=== PATIENT | male | born 1935 | race Caucasian/White ===

== ENCOUNTER 2019-02-05 10:40 | Emergency (ER) | payer MEDICARE, BC ==
[2019-02-05 11:00] VITALS: BP 115/54
--- NOTE | 2019-02-05 11:04 | UC ---
General HPI - HPI Summary HPI Summary: Pleasant 83 yo gentleman presents accompanied by his here for "recheck." Seen 02/03/19 in [place] ED after a syncopal episode [place]. Recalls feeling weak and wanting to lean back while sitting in a chair, and his noted him to be "slumped over". Spent 5-6 hours per pt in the ED, ED w/u they reported was unremarkable. He does not have reports / notes, but did bring d/c instructions, regarding nausea. Rx zofran from the ED. Upon driving to [place] (they are dropping their grandchild off at [place]), he continued to feel weak, fatigued. Appetite decreased, funny feeling in stomach. No melena no brbpr. Denies urinary sx. No recent fever / chills. He notes that he has been more fatigued, short-winded than usual especially notes while walking around [place]. Has not passed out. Glucose monitored closely, no new issues. No rash. No vis / aud changes. No h /a. Denies recent new or unusual focal weakness. - History of Current Complaint Chief Complaint: UCGeneralIllness Stated Complaint: RECHECK AFTERFAINTING SPELL Time Seen by Provider: 02/05/19 11:00 Hx Obtained From: Patient, Family/Director Product Safety Pain Intensity: 0 - Allergy/Home Medications Allergies/Adverse Reactions: Allergies Allergy/AdvReac Type Severity Reaction Status Date / Time No Known Allergies Allergy Verified 02/05/19 11:01 Home Medications: Home Medications Amlodipine Besylate [Norvasc] 10 mg PO DAILY 02/05/19 [History Confirmed ] Aspirin EC TAB* [Ecotrin EC Low Dose 81 MG*] 81 mg PO DAILY 02/05/19 [History Confirmed 02/05/19] Carvedilol [Coreg] 12.5 mg PO BID 02/05/19 [History Confirmed 02/05/19] Cholecalciferol TAB* [Vitamin D TAB*] 1,000 unit PO DAILY 02/05/19 [History Confirmed 02/05/19] Cyanocobalamin TAB* [Vitamin B12 TAB*] 1,000 mcg PO DAILY 02/05/19 [History Confirmed 02/05/19] Dulaglutide [Trulicity] 0.75 mg SQ WEEKLY 02/05/19 [History Confirmed 02/05/19] Furosemide TAB* [Lasix TAB*] 20 mg PO .EVERYOTHERDAY 02/05/19 [History Confirmed 02/05/19] Glucosamine HCl [Glucosamine] 2 tab PO DAILY 02/05/19 [History Confirmed ] Insulin Aspart Prot/Insuln Asp [Novolog Mix 70/30 Prefill] SC . NEEDED PRN [History] Insulin GLARGINE(*) [Lantus(*)] 10 - 18 units SUBCUT BEDTIME 02/05/19 [History Confirmed 02/05/19] Iron 2 tab PO DAILY 02/05/19 [History Confirmed 02/05/19] Lisinopril TAB* [Prinivil TAB*] 20 mg PO BID 02/05/19 [History Confirmed ] Magnesium 1 dose PO DAILY 02/05/19 [History Confirmed 02/05/19] Metformin HCl 500 mg PO BID 02/05/19 [History Confirmed 02/05/19] Multivitamin [Multivitamins] 1 cap PO DAILY 02/05/19 [History Confirmed 02/05/19 ] Omeprazole 20 mg PO DAILY 02/05/19 [History Confirmed 02/05/19] Rosuvastatin Calcium [Crestor] 10 mg PO DAILY 02/05/19 [History Confirmed ] Sodium Bicarbonate (ANTACID)* 1 g PO BID 02/05/19 [History Confirmed 02/05/19] Vitamin E Acetate [Vitamin E] 1,000 unit PO DAILY 02/05/19 [History Confirmed ] PMH/Surg Hx/FS Hx/Imm Hx Previously Healthy: No - see hpi and Rn notes Cardiovascular History: Cardiac Disease, Hypertension - Surgical History Surgical History: Yes Surgery Procedure, Year, and Place: hernia,[place] - Family History Known Family History: Positive: Non-Contributory - Social History Alcohol Use: None Substance Use Type: None Smoking Status (MU): Never Smoked Tobacco Review of Systems All Other Systems Reviewed And Are Negative: Yes Constitutional: Positive: Fatigue Skin: Positive: Other - see hpi Eyes: Positive: Other ENT: Positive: Other - see hpi Respiratory: Positive: Other - see hpi Cardiovascular: Positive: Other - see hpi Gastrointestinal: Positive: Other - see hpi Genitourinary: Positive: Other - see hpi Motor: Positive: Other - see hpi Neurovascular: Positive: Other - see hpi Musculoskeletal: Positive: Other: - see hpi Neurological: Positive: Other - see hpisee hpi Psychological: Positive: Negative Is Patient Immunocompromised?: No Physical Exam Triage Information Reviewed: Yes Appearance: Well-Appearing - sitting up for examination. Conversing in full sentances. Looks a little tired, but NAD. Nontoxic general appearance, Well- Nourished Vital Signs: Initial Vital Signs Temp 98 F 02/05/19 10:55 Pulse 50 02/05/19 10:55 Resp 18 02/05/19 10:55 BP 115/54 02/05/19 10:55 Pulse Ox 99 02/05/19 10:55 Vital Signs Reviewed: Yes Eye Exam: Normal ENT Exam: Other - mm moist ENT: Positive: Other - ? facial droop L lip, but able to move with conversation Neck exam: Other - + arthritic changes trachea midline. bruit equivacle Respiratory Exam: Other - BS present bilat. fine crackles at base L>R, does not clear with cough. RR normal, no dyspnea, no tachypnea. Respiratory: Positive: No respiratory distress, No accessory muscle use Cardiovascular Exam: Other - HR low 50's + large syst murmur regular rhythm with occas extra beat Abdominal Exam: Other - + implant R abd in place, does not appear infected Several ecchymoses of various age scattered across abd Abd soft + bs With point tenderness, but does c/o unwell feeling in abd. No cvat noted. Musculoskeletal Exam: Other - Moves all 4 ext's well. + several areas of hemosiderosis, flaky skin BUE BLE. There is mild edema BLE (reports that he did wear compression sock for driving, but not today). Paucity of hair growth. Neurological Exam: Other - without acute hx or findings other than noted Psychological Exam: Normal - conversing easily and appropriately nad Skin Exam: Other - multiple eccymosis and scattered hemosiderosis nondiaphoretic. Turgor ok. Course/Dx - Course Course Of Treatment: ekg - sinus bradycardia at 52 bpm, pr 279, qtc 390 BL lad. No old for comp I reviewed with patient avs instructions from [place]. No reports attached. Had CT brand nad CXR nad labs incl trop rx zofran from [place]. 83 yo gentleman s/p recent syncope episode, and ongoing fatigue and sob. Significant medical hx. He and were planning to travel from [place] to [facility] but they will cancel that part of the trip. I implored him to go to the ED. and Ms. Luciano carefully considered this, but politely but firmly decline. He also declines a cxr here. They asked about flying back to [place], but I recommend against this, several reasons d/w and Ms Luciano. Upon consideration, Mr Luciano reports that he will go to the ED tomorrow after getting their grandson settled in. But will call 911 to go to the ED sooner if worse / new issues. and Ms. Luciano were given the opportunity to ask several insightful questions, to which I answered to the best of my ability. - Diagnoses Provider Diagnosis: Near syncope, Weakness Discharge - Sign-Out/Discharge Documenting (check all that apply): Patient Departure All imaging exams completed and their final reports reviewed: No Studies - Discharge Plan Condition: Guarded Disposition: HOME Patient Education Materials: Weakness (ED), Near Syncope (ED) Referrals: No Primary Care Phys,NOPCP [Primary Care Provider] - Additional Instructions: I recommend that you go to the Emergency Department for further evaluation and treatment. Call 911 and go to the Emerg Department if any worse or new problems. Avoid flying if possible. Call your doctor to arrange follow up for when you return home. - Billing Disposition and Condition Condition: GUARDED Disposition: Home
--- NOTE | 2019-02-05 14:50 | UC ---
- Progress Note Progress Note: addendum - Mr. Luciano declined cxr Course/Dx - Diagnoses Provider Diagnoses: Near syncope, Weakness Discharge - Sign-Out/Discharge Documenting (check all that apply): Patient Departure All imaging exams completed and their final reports reviewed: No Studies - Discharge Plan Condition: Guarded Disposition: HOME Patient Education Materials: Weakness (ED), Near Syncope (ED) Referrals: No Primary Care Phys,NOPCP [Primary Care Provider] - Additional Instructions: I recommend that you go to the Emergency Department for further evaluation and treatment. Call 911 and go to the Emerg Department if any worse or new problems. Avoid flying if possible. Call your doctor to arrange follow up for when you return home. - Billing Disposition and Condition Condition: GUARDED Disposition: Home
== END 2019-02-05 12:03 | disposition home or self-care (01) ==
LOC: UCEAST 10:40
DX: R55 Syncope and collapse (principal); R53.83 Other fatigue; I10 Essential (primary) hypertension; E11.9 Type 2 diabetes mellitus without complications; Z79.4 Long term (current) use of insulin; Z79.82 Long term (current) use of aspirin
CPT/HCPCS: 93005; 99202; G0463

== ENCOUNTER 2019-02-06 11:49 | Emergency (ER) | payer MEDICARE, BC ==
[2019-02-06] MEDS ORDERED: NS 0.9% 1000 ML** 1,000 ML IV ONE (12:07)
--- NOTE | 2019-02-06 12:28 | ED ---
Syncope/Near Syncope - HPI Summary HPI Summary: This pt is an 83 Y/O M presenting to [facility] accompanied by his and a CC of syncope that occurred on 02/03/19. He stated that he was driving across the [place] and was crossing into [place] from [place] when the episode occurred. He stated feeling nauseas prior to the episode occurring. He stated that he became unconscious in the car and was unable to be aroused during the episode. He stated that he was at a convenient care prior to arrival to this hospital today for a check-up when he was recommended by the physician working to come to the hospital for further investigation. He states that he has no CP, SOB, headache, vomiting, fevers, chills, and weakness. He stated no aggravating or alleviating symptoms. - History Of Current Complaint Chief Complaint: EDSyncope Time Seen by Provider: 02/06/19 12:07 Hx Obtained From: Patient Onset/Duration: Sudden Onset, Resolved Timing: Intermittent Episode Lasting Context: Witnessed, Loss Of Consciousness Activity At Onset: At Rest Associated Head Trauma: No Aggravating Factor(s): Nothing Alleviating Factor(s): Nothing Associated Signs And Symptoms: Negative - CP, SOB, headache, Vomiting, fevers, chills, and weakness., Other - nausea at the time of the episode - Allergies/Home Medications Allergies/Adverse Reactions: Allergies Allergy/AdvReac Type Severity Reaction Status Date / Time No Known Allergies Allergy Verified 02/06/19 11:56 PMH/Surg Hx/FS Hx/Imm Hx Previously Healthy: Yes Endocrine/Hematology History: Reports: Hx Diabetes - iddm Denies: Hx Thyroid Disease Cardiovascular History: Reports: Hx Hypertension Respiratory History: Denies: Hx Asthma GI History: Denies: Hx Ulcer Sensory History: Reports: Hx Contacts or Glasses Opthamlomology History: Reports: Hx Contacts or Glasses - Surgical History Surgery Procedure, Year, and Place: hernia x2 years ago. cholecystectomy x2 years ago. [address] in the . Infectious Disease History: No Infectious Disease History: Reports: Travel[place] Outside the [place] in Last 30 [place], returned last week Denies: Hx Hepatitis - Family History Known Family History: Positive: Hypertension - Social History Occupation: Retired Lives: With Family Alcohol Use: None Hx Substance Use: No Substance Use Type: Reports: None Hx Tobacco Use: No Smoking Status (MU): Never Smoked Tobacco Review of Systems Negative: Fever, Chills Negative: Chest Pain Negative: Shortness Of Breath Positive: Nausea - prior to the episode . Negative: Vomiting Positive: Syncope - occurred 3 days ago . Negative: Headache All Other Systems Reviewed And Are Negative: Yes Physical Exam - Summary Physical Exam Summary: VITAL SIGNS: Reviewed. GENERAL: Patient is a well-developed and nourished male who is lying comfortable in the stretcher. Patient is not in any acute respiratory distress. HEAD AND FACE: No signs of trauma. No ecchymosis, hematomas or skull depressions. No sinus tenderness. EYES: PERRLA, EOMI x 2, No injected conjunctiva, no nystagmus. EARS: Hearing grossly intact. Ear canals and tympanic membranes are within normal limits. MOUTH: Oropharynx within normal limits. NECK: Supple, trachea is midline, no adenopathy, no JVD, no carotid bruit, no c- spine tenderness, neck with full ROM. CHEST: Symmetric, no tenderness at palpation LUNGS: Clear to auscultation bilaterally. No wheezing or crackles. CVS: Regular rate and rhythm, S1 and S2 present, lower systolic injection murmur 2/6 ABDOMEN: Soft, non-tender. No signs of distention. No rebound no guarding, and no masses palpated. Bowel sounds are normal. EXTREMITIES: FROM in all major joints, lower extremity edema 1+, no cyanosis or clubbing. NEURO: Alert and oriented x 3. No acute neurological deficits. Speech is normal and follows commands. SKIN: Dry and warm Triage Information Reviewed: Yes Vital Signs On Initial Exam: Initial Vitals Temp Pulse Resp BP Pulse Ox 98.9 F 59 16 180/67 96 02/06/19 11:50 02/06/19 11:50 02/06/19 11:50 02/06/19 11:50 02/06/19 11:50 Vital Signs Reviewed: Yes Diagnostics - Vital Signs Vital Signs Temp Pulse Resp BP Pulse Ox 02/06/19 11:50 98.9 F 59 16 180/67 96 - Laboratory Result Diagrams: 02/06/19 12:34 02/06/19 12:34 Lab Statement: Any lab studies that have been ordered have been reviewed, and results considered in the medical decision making process. - EKG 1251 Cardiac Rate: Bradycardia - 58 BPM EKG Rhythm: Sinus Bradycardia ST Segment: Normal Ectopy: None Summary of EKG Findings: Sinus Bradycardia at [address] elevations and Normal axis. Normal interval. No ischemic changes. Interpreted by Dr. Barker at 1257 02/06/19. Re-Evaluation - Re-Evaluation First Eval Re-Evaluation Time: 15:09 Change: Improved Comment: Pt stated that he was feeling better and was informed of his labratory results/ Course/Dx Assessment/Plan: This pt is an 83 Y/O M presenting to [facility] accompanied by his and a CC of syncope that occurred on 02/03/19. He stated that he was driving across the [place] and was crossing into [place] from [place] when the episode occurred. He stated feeling nausea prior to the episode occurring. He stated that he became unconscious in the car and was unable to be aroused during the episode. He stated that he was at a convenient care prior to arrival to this hospital today for a check-up when he was recommended by the physician working to come to the hospital for further investigation. He states that he has no CP, SOB, headache, vomiting, fevers, chills, and weakness. He stated no aggravating or alleviating symptoms. Patient continues to be asymptomatic. He doesnt have any symptoms or complaints. Blood tests without any significant abnormality except for a slight anemia which is chronic as per patient, also slight renal insufficiency which is chronic as per patient. Magnesium level was slightly decreased therefore he was given magnesium by mouth. EKG is a normal sinus rhythm without any ST elevations. Patient had a head CT and a chest x-ray in both follow 3 days ago and all the test results were negative, therefore, I do not believe that the patient needs to get another CT or chest x-ray. The patient is asymptomatic. I discussed all my findings and test results with the patient and the need to follow-up with primary care physician. He understands and agrees. All questions were addressed and he has no further concerns. - Diagnoses Provider Diagnoses: Anemia, Hypocalcemia, Hyperglycemia Discharge - Sign-Out/Discharge Documenting (check all that apply): Patient Departure - discharge Patient Received Moderate/Deep Sedation with Procedure: No - Discharge Plan Condition: Stable Disposition: HOME Patient Education Materials: Anemia (ED), Hypercalcemia (ED), Diabetic Hyperglycemia (ED) Referrals: Care [facility] [Outside] Additional Instructions: PLEASE FOLLOW UP WITH YOUR PRIMARY CARE PHYSICIAN WHEN YOU ARRIVE HOME OR FOLLOW UP WITH [facility] IN 1-3 DAYS AND RETURN TO THE EMERGENCY DEPARTMENT FOR ANY NEW OR WORSENING SYMPTOMS. - Billing Disposition and Condition Condition: STABLE Disposition: Home - Attestation Statements Document Initiated by Maria Teresa: Yes Documenting Scribe: Spencer Norman Provider For Whom Hodae is Documenting (Include Credential): Jose Alberto Barker MD Scribe Attestation: ISpencer, scribed for Jose Alberto Barker MD on 02/06/19 at 1625. Scribe Documentation Reviewed: Yes Provider Attestation: The documentation as recorded by the Spencer barton accurately reflects the service I personally performed and the decisions made by me, Jose Alberto Barker MD Status of Scribe Document: Viewed
[2019-02-06 12:45] LABS: ABS Eosinophils 0.2 10^3/ul (0-0.6); ABS Lymphocytes 0.6 10^3/ul (1.0-4.8); ABS Monocytes 0.4 10^3/ul (0-0.8); ABS Neutrophils 1.6 10^3/ul (1.5-7.7); Eosinophil % 6.9 %; Hematocrit 32 % (42-52); Hemoglobin 10.8 g/dL (14.0-18.0); Lymphocyte % 22.5 %; Mean Corpuscular HGB Conc 33 g/dL (31-36); Mean Corpuscular Hemoglobin 30 pg (27-31); Mean Corpuscular Volume 90 fL (80-94); Mean Platelet Volume 9.2 fL (7.4-10.4); Nucleated Red Blood Cells % 0.1; Platelet Count 125 10^3/uL (150-450); Red Blood Count 3.62 10^6 /uL (4.18-5.48); Red Cell Distribution Width 14 % (10-15); White Blood Count 2.8 10^3/uL (3.5-10.8)
[2019-02-06 12:59] LABS: ALT 24 U/L (7-52); AST 28 U/L (13-39); Albumin 3.9 g/dL (3.2-5.2); Albumin/Globulin Ratio 1.8 (1-3); Alkaline Phosphatase 46 U/L (34-104); BUN/Creatinine Ratio 23.4 (8-20); Blood Urea Nitrogen 37 mg/dL (6-24); CO2 Carbon Dioxide 24 mmol/L (22-32); Calcium 9.1 mg/dL (8.6-10.3); Chloride 109 mmol/L (101-111); Creatine Kinase 113 U/L (10-223); EGFR African American 50.8 (>60); Globulin 2.2 g/dL (2-4); Glucose 168 mg/dL (70-100); Magnesium 1.7 mg/dL (1.9-2.7); Sodium 138 mmol/L (135-145); Total Protein 6.1 g/dL (6.4-8.9)
[2019-02-06 13:05] LABS: Anion Gap 5 mmol/L (2-11); Potassium 5.3 mmol/L (3.5-5.0)
[2019-02-06] MEDS ORDERED: Magnesium Oxide TAB* 400 MG PO ONE (13:17)
[2019-02-06 13:26] LABS: Alcohol < 10 mg/dL (<10)
[2019-02-06 13:41] LABS: TSH (Thyroid Stimulating Horm) 2.07 mcIU/mL (0.34-5.60)
[2019-02-06 14:47] LABS: Urine Appearance Cloudy; Urine Bilirubin Negative (Negative); Urine Blood Negative (Negative); Urine Color Yellow; Urine Glucose Negative (Negative); Urine Ketones Negative (Negative); Urine Nitrite Negative (Negative); Urine Protein Negative (Negative); Urine Specific Gravity 1.016 (1.010-1.030); Urine Urobilinogen Negative (Negative)
[2019-02-06 15:43] VITALS: BP 152/74
== END 2019-02-06 15:42 | disposition home or self-care (01) ==
LOC: ED 11:49
DX: D64.9 Anemia, unspecified (principal); E83.51 Hypocalcemia; E11.65 Type 2 diabetes mellitus with hyperglycemia; Z79.4 Long term (current) use of insulin; Z79.84 Long term (current) use of oral hypoglycemic drugs; R00.1 Bradycardia, unspecified; I10 Essential (primary) hypertension; Z90.49 Acquired absence of other specified parts of digestive tract; Z95.5 Presence of coronary angioplasty implant and graft; Z79.82 Long term (current) use of aspirin; Z79.899 Other long term (current) drug therapy
CPT/HCPCS: 36415; 80053; 80320; 81003; 82140; 82550; 83605; 83735; 84443; 84484; 85025; 93005; 99283; G0480